=== PATIENT | female | born 1945 ===

== ENCOUNTER 2018-09-20 08:39 | Day surgery (SDC) | payer OTHER ==
[2018-09-20] MEDS ORDERED: LR 1,000 ML IV ONE (09:03)
--- NOTE | 2018-09-20 09:27 | PDHPUP ---
History & Physical Update H&P update statement: This history and physical update is based on an assessment of the patient which was completed after admission or registration (within 24 hours), but prior to the surgery/procedure. H&P update: H&P reviewed & patient examined, no change in patient's condition since H&P completed
[2018-09-20] MEDS ORDERED: BUPIVACAINE 0.25% 30 ML SDV ONE (09:51)
[2018-09-20] MEDS ORDERED: IOPAMIDOL (ISOVUE-M 300) 15 ML VIAL ONE (09:51)
[2018-09-20] MEDS ORDERED: GENTAMICIN SULFATE 80 MG/2 ML VIAL ONE (09:51)
[2018-09-20] MEDS ORDERED: EPINEPHrine 1 MG/ML INJ ONE (09:52)
[2018-09-20] MEDS ORDERED: ONDANSETRON 4 MG/2 ML VIAL IVP PRN (10:27)
[2018-09-20] MEDS ORDERED: oxyCODONE IR 5 MG TAB PO PRN (10:27)
[2018-09-20] MEDS ORDERED: LR 500 ML IV PRN (10:27)
[2018-09-20] MEDS ORDERED: NALOXONE HCL 0.4 MG/ML INJ IVP PRN (10:27)
[2018-09-20] MEDS ORDERED: ACETAMINOPHEN 500 MG TAB PO PRN (10:27)
[2018-09-20] MEDS ORDERED: DEXAMETHASONE 4 MG/ML VIAL IVP PRN (10:27)
[2018-09-20] MEDS ORDERED: fentaNYL 100 MCG/2 ML INJ IVP PRN (10:27)
[2018-09-20] MEDS ORDERED: HYDROCODONE/APAP 5/325 TAB PO PRN (10:27)
[2018-09-20] MEDS ORDERED: NS 500 ML IV PRN (10:27)
[2018-09-20] MEDS ORDERED: ALBUTEROL 3 ML DEYVIAL IH PRN (10:27)
[2018-09-20] MEDS ORDERED: HYDROmorphONE/DILAUDID 2 MG/ML INJ IVP PRN (10:27)
--- NOTE | 2018-09-20 10:27 | PDANEPAE ---
ANE History of Present Illness HERE FOR KYPHO ANE Past Medical History - Cardiovascular History Hx Hypertension: No Hx Arrhythmias: No Hx Chest Pain: No Hx Coronary Artery / Peripheral Vascular Disease: No Hx CHF / Valvular Disease: No Hx Palpitations: No - Pulmonary History Hx COPD: No Hx Asthma/Reactive Airway Disease: No Hx Recent Upper Respiratory Infection: No Hx Oxygen in Use at Home: No Hx Sleep Apnea: No Sleep Apnea Screening Result - Last Documented: Negative - Neurologic History Hx Cerebrovascular Accident: No Hx Seizures: No Hx Dementia: No - Endocrine History Hx Diabetes: No Endocrine History Comment: PREV TOTAL THYROIDECTOMY. HYPOTHYROID - Renal History Hx Renal Disorders: No - Liver History Hx Hepatic Disorders: No - Neurological & Psychiatric Hx Hx Neurological and Psychiatric Disorders: No - Cancer History Hx Cancer: No - Congenital Disorder History Hx Congenital Disorders: No - GI History Hx Gastrointestinal Disorders: No Gastrointestinal History Comment: YRS AGO REFLUX - Other Health History Other Health History: COMPRESSION T-8FX 08/2018. HAS BEEN USING BRACE AT HOME. RT LOWER LEG DVT 2006 - Surgical History Prior Surgeries: TOTAL THYROIDECTOMY 2003. RT FOOT ORIF. LT SHLDR FX. APPENDECTOMY. BREAST BX ANE Review of Systems Review of systems is: negative Review of Systems: - Exercise capacity Exercise capacity: >=4 METS METS (RN): 4 METS ANE Patient History - Allergies Allergies/Adverse Reactions: rabeprazole [From Aciphex] Allergy (Verified 09/19/18 14:22) Hives - Home Medications Home medications: home medication list seen and reviewed Home Medications: Levothyroxine DAILY 09/19/18 [Last Taken 09/20/18] Aspirin [Aspirin 81mg (*)] 09/20/18 [Last Taken 09/13/18] - NPO status NPO Status: no food or drink >8 hours NPO Since - Liquids (Date): 09/20/18 NPO Since - Liquids (Time): 07:30 NPO Since - Solids (Date): 09/19/18 NPO Since - Solids (Time): 21:00 - Smoking Hx Smoking Status: Never smoked ANE Labs/Vital Signs - Vital Signs Vital Signs: reviewed preoperatively; see RN documention for details Blood Pressure: 117/66 Heart Rate: 67 Respiratory Rate: 14 O2 Sat (%): 96 Height: 167.64 cm Weight: 74.389 kg ANE Physical Exam - Airway Neck exam: FROM Mallampati Score: Class 1 - Pulmonary Pulmonary: no respiratory distress - Cardiovascular Cardiovascular: regular rate and rhythym - ASA Status ASA Status: II ANE Anesthesia Plan Anesthesia Plan: general endotracheal anesthesia
[2018-09-20] MEDS ORDERED: fentaNYL 100 MCG/2 ML INJ ONE (10:29)
[2018-09-20] MEDS ORDERED: ROCURONIUM 50 MG/5 ML VIAL ONE (10:30)
[2018-09-20] MEDS ORDERED: PROPOFOL 200 MG/20 ML VIAL ONE (10:31)
[2018-09-20] MEDS ORDERED: CEFAZOLIN 2 GM/DEXTROSE/100 ML BAG IV ONE (10:37)
[2018-09-20] MEDS ORDERED: ceFAZolin 2 GM/DEXTROSE 100 ML IV ONE (10:37)
[2018-09-20] MEDS ORDERED: DEXAMETHASONE 4 MG/ML VIAL ONE (10:42)
[2018-09-20] MEDS ORDERED: ONDANSETRON 4 MG/2 ML VIAL ONE (10:42)
[2018-09-20] MEDS ORDERED: SUGAMMADEX SODIUM 200 MG/2 ML VIAL IVP ONE (11:43)
--- NOTE | 2018-09-20 12:15 | POSTOPPROG ---
Post Op Note Date of Operation: 09/20/18 Surgeon: Lisbeth Leal Anesthesiologist: Dr. Spivey Anesthesia: GET(General Endotracheal) Pre-op Diagnosis: compression fracture Post-op Diagnosis: compression fracture Procedure: T8 kyphoplasty Inf/Abcess present in the surg proc area at time of surgery?: No Depth: Deep Incisional (Fascial) Plan Plan: 73 yo female s/p T8 kyphoplasty - neuro checks - pain control - advance diet - no brace - discharge home Exam Awake. Alert Following commands Strength full
[2018-09-20] MEDS ORDERED: ALBUTEROL 3 ML DEYVIAL ONE (12:32)
--- NOTE | 2018-09-20 12:32 | GOP ---
DATE OF OPERATION: 09/20/2018 SURGEON: Lisbeth Leal DO NEUROSURGEON: Lisbeth Leal DO. ASSURANCE ANALYST: None. PREOPERATIVE DIAGNOSIS: T8 compression fracture. POSTOPERATIVE DIAGNOSIS: T8 compression fracture. PROCEDURE PERFORMED: T8 kyphoplasty. FINDINGS: SPECIMENS: None. ESTIMATED BLOOD LOSS: 15 mL. INDICATIONS: This is a 73-year-old female with a T8 compression fracture that is acute on MRI, who h as failed conservative management, elected to move forward with kyphoplasty. DESCRIPTION OF PROCEDURE: She was identified, consented. Sites were marked. Brought to the operati ng room, anesthetized under general endotracheal anesthesia, rolled onto the Wilfredo table. All pres sure points were appropriately padded. Counting up from the sacrum, we marked the T8 level in the AP and lateral planes after having prepped and draped in the usual sterile fashion, and we did this wit h the O arm. We then anesthetized the stab incisions with 0.5% Marcaine with epinephrine. Made a st ab incision with 11 blade and navigated down, first on the left and then the right in the AP and late ral plane, down the pedicle and into the body. We then placed the balloons, verified they were in th eir appropriate position. Inflated the Kyphon balloons to the appropriate height without exceeding 4 00 psi. Once the cement was the appropriate consistency, we removed the balloons in the AP and later al plane, deployed approximately 4 cc of cement until we had good fill, good intercalation, some rest oration of height, and no extravasation of cement. We then gently removed the cannulas, making sure that there was no tail following this. We then closed the incisions with 4-0 Monocryl subcuticular s titch and Steri-Strips and dressed the wound with a Band-Aid. Patient tolerated procedure well. No complications. FLUID: 600 mL crystalloid. URINE OUTPUT: None. DRAINS: None. COMPLICATIONS: None. /[id number]/MODL
[2018-09-20 12:57] VITALS: BP 125/78
== END 2018-09-20 14:40 | disposition home or self-care (01) ==
LOC: FSGY 08:39
PROVIDERS: ATTEND Neurological Surgery
PROC: 0PS43ZZ Reposition Thoracic Vertebra, Percutaneous Approach (ICD-10-PCS; principal; 2018-09-20 10:45)
DX: M48.54XA Collapsed vertebra, not elsewhere classified, thoracic region, initial encounter for fracture (principal); E89.0 Postprocedural hypothyroidism
CPT/HCPCS: C1713; J0171; J0690; J1100; J1580; J2405; J2704; J3010; J7613; Q9967